=== PATIENT | male | born 1935 | race Caucasian/White ===

== ENCOUNTER → 2018-12-21 | Outpatient (CLI) | payer MEDICARE ==
[~2018-12-21] MED LIST: ATOR1TAB19 PO; CARA1TAB2 PO; DIOV320T PO; FINA5TAB2 PO; ISOVUE-370 76% 100ML VIAL (Q9967) As Ordered ONE; NEXI40GR PO; REGL10TA6 PO; TYLE325T5 PO
--- NOTE | 2018-12-21 15:44 | REP ---
Clinical: Abnormal weight loss. Technique: Axial contrast enhanced images from the lung bases to the pubic symphysis using 100 ml Isovue 370 intravenous contrast material with coronal and sagittal re-formations. Comparison: 02/19/2012. Findings: Lung bases demonstrate 2 mm noncalcified nodule in the periphery of the left lower lobe and mild chronic appearing right basilar interstitial changes. Visualized portions of the heart and pericardium normal. Liver demonstrates few scattered hypodensities measuring up to 9 mm likely representing cysts and appearing relatively similar to prior examination. Splenic hypodensity is measure up to 9 mm are also identified which may reflect cysts and there appears to be a subtle vague ill-defined enhancing lesion along the posterior aspect of the spleen measuring approximately 3.6 cm diameter which cannot be further characterized. The pancreas, gallbladder, bilateral adrenal glands and kidneys are relatively normal in appearance. The enteric system is without obstruction or acute inflammatory process. Pelvis demonstrates enlarged heterogeneous prostate gland with significant mass effect on the base of the bladder. No obvious ascites and no free air. No obvious adenopathy. Atherosclerotic changes to the aorta and vasculature noted without aneurysm or dissection. The osseous structures demonstrate osteopenia and degenerative changes along with few scattered areas of sclerosis in multiple lumbar vertebral bodies which are nonspecific but relatively similar to prior examination. Impression: 1. Subcentimeter hepatic and splenic hypodense lesions which may reflect cysts. 2. Vague ill-defined heterogeneous enhancing 3.6 cm lesion within the posterior aspect of the spleen which cannot be further characterized, but may represent hemangioma. 3. Enlarged prostate gland with significant mass effect on the base of the bladder. 4. No ascites, focal inflammatory stranding, or obvious adenopathy. 5. Atherosclerotic changes to the vasculature and presumed age-related degenerative changes the musculoskeletal structures which appear similar to prior examination. Electronically Signed by Victoriano Cheng MD 12/21/2018 03:34 P
== END ==
LOC: M RAD 14:03
PROVIDERS: ATTEND Student in an Organized Health Care Education/Training Program
DX: R63.4 Abnormal weight loss (principal); R19.4 Change in bowel habit
CPT/HCPCS: 74177; Q9967

== ENCOUNTER → 2019-01-06 | Outpatient (CLI) | payer MEDICARE ==
[~2019-01-06] MED LIST changes: +E-Z-GAS II EFFERVESCENT PACKET (SODIUM BICARB./CITRIC ACID/SIMETHICONE) As Ordered ONE; +E-Z-HD 98% w/w 340GM SUSP BTL As Ordered ONE; +E-Z-PAQUE 96% w/w SUSP 176GM BTL As Ordered ONE; -ISOVUE-370 76% 100ML VIAL (Q9967) As Ordered ONE
--- NOTE | 2019-01-07 07:52 | REP ---
Examination Requested: Esophagram Barium Swallow Reason For Exam/Comment: Dysphasia Esophagram: The procedure was performed RACHELLE Haas, under the direct supervision of Dr. Patino. The images were reviewed with Dr. Patino. A single PA chest x-ray is submitted as a meeting facilitator film. The superior mediastinal structures are midline. The heart size is within normal limits. The lungs are clear. Liquid barium was given in the erect position, in order to perform a single contrast esophagram examination. Oral and pharyngeal stages of the examination demonstrate laryngeal penetration without aspiration. There is fullness in the super glottic larynx suspicious for a mass. A CT soft tissue neck with contrast is recommended for further evaluation. Immobility of the epiglottis was all also observed. There is a non fixed narrowing of the esophagus in the cricopharyngeal region. The distal esophagus appears distended and multiple tertiary contractions were observed. There is no hiatal hernia noted. Gastroesophageal reflux was not visualized throughout the course of the exam. Impression: 1. Fullness of the supraglottic larynx suspicious for mass, CT soft tissue neck with contrast is recommended for further evaluation. 2. Immobility of the epiglottis. 3. Non fixed narrowing of the esophagus in the cricopharyngeal region. 4. Presbyesophagus. 0.3 minutes of fluoroscopy time was utilized for this procedure. Some fluoroscopic images are performed with last image hold technology. These images require no additional radiation. Reviewed by RACHELLE Emmanuel 01/06/2019 06:00 P Electronically Signed by Sarthak Patino MD 01/07/2019 07:43 A
== END ==
LOC: M RAD 07:50
PROVIDERS: ATTEND Student in an Organized Health Care Education/Training Program
DX: R13.10 Dysphagia, unspecified (principal); K22.8 Other specified diseases of esophagus; K22.2 Esophageal obstruction

== ENCOUNTER → 2019-01-18 | Outpatient (CLI) | payer MEDICARE ==
[~2019-01-18] MED LIST changes: -E-Z-GAS II EFFERVESCENT PACKET (SODIUM BICARB./CITRIC ACID/SIMETHICONE) As Ordered ONE; -E-Z-HD 98% w/w 340GM SUSP BTL As Ordered ONE; -E-Z-PAQUE 96% w/w SUSP 176GM BTL As Ordered ONE; +ISOVUE-370 76% 100ML VIAL (Q9967) As Ordered ONE
--- NOTE | 2019-01-18 10:21 | REP ---
INDICATION: Question mass seen on barium swallow. 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 PROCEDURE: Axial CT Scan of the neck was performed following the uneventful intravenous administration of 75 ml Isovue 370. Coronal and sagittal reformatted images were provided. COMPARISON: Esophagram of 01/06/2019. FINDINGS: There postsurgical changes of the left neck. There is obscuration of the oropharynx secondary to dental amalgam. Within this limitation, the left-sided base of the tongue is significantly larger than the right. No definite mass is identified. There is calcification anterior to the right arytenoid. The parotid glands are poorly visualized secondary to streak artifact from dental amalgam. The right submandibular gland is normal. The left submandibular gland is absent. There is no tonsillar or adenoidal enlargement. There is no abscess identified. The upper airway is patent. The esophagus is patulous. There is no cervical adenopathy. The thyroid is normal in attenuation. There is pleural parenchymal scarring within both lung apices with calcified plaques. There is cervical spondylosis. No suspicious osseous lesion is identified. There is calcification of the cavernous carotid arteries. There is partial opacification of the right mastoid air cells. CONCLUSION: Postsurgical changes of the left neck. Limited evaluation of the oropharynx secondary to streak artifact from dental amalgam. Within this limitation, the left-sided base of the tongue is larger than the right. Correlation can be made with direct visualization. No definite mass identified. Patulous esophagus. Cervical spondylosis. Partial opacification of the right mastoid air cells. Pleural parenchymal scarring within the lung apices. Electronically Signed by Jeromy Welsh MD 01/18/2019 10:13 A
== END ==
LOC: M RAD 08:11
PROVIDERS: ATTEND Student in an Organized Health Care Education/Training Program
DX: R93.5 Abnormal findings on diagnostic imaging of other abdominal regions, including retroperitoneum (principal); J38.7 Other diseases of larynx
CPT/HCPCS: 70491; Q9967